=== PATIENT | male | born 1970 | race Caucasian/White ===

== ENCOUNTER 2019-07-13 20:35 | Emergency (ER) | payer SELFPAY ==
[2019-07-13 20:40] VITALS: BP 131/85; PULSE 108; RESP 22; TEMP 36.1; O2SAT 93; BMI 29.5
[2019-07-13 21:23] VITALS: O2SAT 96
--- NOTE | 2019-07-13 21:26 | EKG12_ITS ---
Test Reason : DYSRHYTHMIA Blood Pressure : / mmHG Vent. Rate : 094 BPM Atrial Rate : 094 BPM P-R Int : 182 ms QRS Dur : 092 ms QT Int : 370 ms P-R-T Axes : 057 045 018 degrees QTc Int : 462 ms Normal sinus rhythm Normal ECG Confirmed by HOANG DOUGLAS, BRAD ([id number]), editor at large MICKEY CLANCY ([id number]) on 07/16/2019 12:17:38 PM Referred By: No Primary Care Physician Confirmed By:BRAD BOLTON MD
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
[2019-07-13 21:37] LABS: Absolute Lymphocyte Count 3.52 X10^3/uL (0.83-4.51); Absolute Neutrophil Count 3.8 X10^3/uL (2.0-7.7); Basophil# 0.03 X10^3/uL; Basophil% 0.4 % (0-1); Eosinophil# 0.02 X10^3/uL; Eosinophils% 0.3 % (0-5); Hematocrit 43.1 % (40-54); Hemoglobin 14.7 g/dL (13.0-16.5); Lymphocyte # 3.52 X10^3/ul (4.0); Lymphocyte % 44.2 % (19-41); Mean Corp Hgb Conc 34.1 g/dL (32-36); Mean Corpuscular Hgb 32.2 pg (27.0-32.0); Mean Corpuscular Volume 94.5 fL (80-94); Mean Platelet Vol. 8.9 fl (6.2-12.0); Monocyte# 0.58 X10^3/uL; Monocyte% 7.3 % (0-10); NRBC Flagged by Analyzer 0 % (0-5); Neutrophil # 3.76 X10^3/uL (2.7-7.7); Neutrophil % 47.2 % (47-70); Platelet Count 341 K/mm3 (150-450); RBC Distribution Width CV 11.9 % (11.6-14.6); RBC Distribution Width SD 41.4 fl (35.1-43.9); Red Blood Count 4.56 M/mm3 (4.6-6.2)
[2019-07-13 22:38] LABS: Anion Gap 11 (5-15); BUN 10 mg/dL (7-18); BUN/Creat Ratio 9.5 RATIO (10-20); Calcium,Total 8.4 mg/dL (8.5-10.1); Chloride 109 mmol/L (98-107); Creatinine, Serum 1.05 mg/dL (0.70-1.30); EST Glomerular Filtration Rate 80 mL/min (>60); Est Glom Filt Rate - Afr Amer 97 mL/min (>60); Estimated Creatinine Clearance 86.04 ml/min; Glucose 151 mg/dL (74-106); Potassium 2.9 mmol/L (3.5-5.1); Sodium Level 142 mmol/L (136-145)
[2019-07-13 22:46] VITALS: BP 150/107; PULSE 103; RESP 16; O2SAT 97
[2019-07-13 23:09] VITALS: BP 164/98; PULSE 100; RESP 16; O2SAT 97
[2019-07-13 23:20] LABS: Amphetamine Urine VISTA NEGATIVE (<1000 ng/mL); Barbiturate Urine VISTA NEGATIVE (< 200 ng/mL); Benzodiazepine Urine VISTA NEGATIVE (< 200 ng/mL); Cocaine Urine VISTA NEGATIVE (< 300 ng/mL); Ecstacy Urine VISTA NEGATIVE (< 500 ng/mL); Methadone Urine VISTA NEGATIVE (< 300 ng/mL); PCP Urine VISTA NEGATIVE (< 25 ng/mL); THC Urine VISTA NEGATIVE (< 50 ng/mL); Vista UDS pH Range 5
--- NOTE | 2019-07-13 23:46 | PCM.HP.STD ---
History of Present Illness The patient is a 48 year old M [] Past Medical History Allergies No Known Allergies Allergy (Verified 07/13/19 20:40) Home Medications: Ambulatory Orders Medication Instructions Recorded NK 07/13/19 Smoking Status: Never smoker - Physical Exam Vitals/I&O's: Vital Signs Temp Pulse Resp BP Pulse Ox 96.9 F L 100 16 164/98 H 97 07/13/19 20:40 07/13/19 23:09 07/13/19 23:09 07/13/19 23:09 07/13/19 23:09 Oxygen Delivery Method Room Air Weight: 90.718 kg Body Mass Index (BMI) 29.5 Laboratory Results 07/13/19 20:47: WBC 8.0, RBC 4.56 L, Hgb 14.7, Hct 43.1, MCV 94.5 H, MCH 32.2 H, MCHC 34.1, RDW Std Deviation 41.4, RDW Coeff of Lilli 11.9, Plt Count 341, MPV 8.9, Immature Gran % (Auto) 0.600, Neut % (Auto) 47.2, Lymph % (Auto) 44.2 H, [place] % (Auto) 7.3, Eos % (Auto) 0.3, Baso % (Auto) 0.4, Absolute Neuts (auto) 3.8, Absolute Lymphs (auto) 3.52, Nucleated RBC % 0 07/13/19 20:47: Sodium 142, Potassium 2.9 L, Chloride 109 H, Carbon Dioxide 22.0, Anion Gap 11, BUN 10, Creatinine 1.05, Estim Creat Clear Calc 86.04, Est GFR (MDRD) Af Amer 97, Est GFR (MDRD) Non-Af 80, BUN/Creatinine Ratio 9.5 L, Glucose 151 H, Calcium 8.4 L, Troponin I < 0.015 07/13/19 20:47: Ethyl Alcohol 110.0 07/13/19 22:55: Urine Opiates Screen NEGATIVE, Urine Methadone Screen NEGATIVE, Ur Barbiturates Screen NEGATIVE, Ur Phencyclidine Scrn NEGATIVE, Ur Amphetamines Screen NEGATIVE, U Methamphetamin-MDMA NEGATIVE, U Benzodiazepines Scrn NEGATIVE, Urine Cocaine Screen NEGATIVE, U Cannabinoids Screen NEGATIVE, Ur Drug Screen Comment Assessment/Plan All Active Problems Unresponsive episode (Acute) Hypokalemia (Acute) Asystole (Acute)
[2019-07-14 00:29] VITALS: BP 126/96; PULSE 102; RESP 14; O2SAT 93
[2019-07-14 01:29] VITALS: BP 131/100; PULSE 69; RESP 21; O2SAT 99
[2019-07-14 02:08] VITALS: BP 139/102; PULSE 116; RESP 17; O2SAT 96
[2019-07-14 02:45] VITALS: BP 134/107; PULSE 115; RESP 19; O2SAT 95
== END 2019-07-14 03:10 | disposition short-term general hospital (02) ==
PROVIDERS: Emergency Provider Emergency Medicine
DX: I46.9 Cardiac arrest, cause unspecified (principal); E87.6 Hypokalemia; F10.99 Alcohol use, unspecified with unspecified alcohol-induced disorder; V67.5XXA Driver of heavy transport vehicle injured in collision with fixed or stationary object in traffic accident, initial encounter; Y93.9 Activity, unspecified; Y92.9 Unspecified place or not applicable
CPT/HCPCS: 71045; 80048; 80307; 80320; 84484; 85025; 93005; 99285; J7030; A4216; G0480